=== PATIENT | male | born 1940 | race Caucasian/White ===

== ENCOUNTER 2016-10-11 13:25 | Inpatient (IN) | payer MEDICARE, OTHER ==
[~2016-10-11] VITALS: Ht 180.3 cm; Wt 93.1 kg
[2016-10-11] MEDS ORDERED: COZAAR 50MG50 MG/TAB PO (14:16)
[2016-10-11] MEDS ORDERED: OMEGA-3 FISH1000 MG PO (14:16)
[2016-10-11] MEDS ORDERED: PRILOSEC 20MG20 MG PO (14:16)
[2016-10-11] MEDS ORDERED: AZULFIDINE500 MG/TAB PO (14:16)
[2016-10-11] MEDS ORDERED: NORVASC 10MG10 MG PO (14:17)
[2016-10-11] MEDS ORDERED: ZOCOR 20MG20 MG PO (14:17)
[2016-10-11] MEDS ORDERED: NAPROSYN500 MG PO (14:17)
[2016-10-11] MEDS ORDERED: ZYLOPRIM 100MG100 MG PO (14:17)
[2016-10-11] MEDS ORDERED: PROVENTIL0.09 MG/A1 IH (14:18)
[2016-10-11 14:29] LABS: BASO # 0.1 (0.0-0.2); BASO % 0.6 % (0.0-2.0); EOS # 0.1 (0.0-0.7); EOS % 1.3 % (0-4.0); GRAN # 5.9 (1.4-6.5); GRAN % 76.1 % (42.2-75.2); HEMATOCRIT 37.2 % (42.0-52.0); HEMOGLOBIN 12.7 g/dl (13.5-18.0); LYMPH # 0.8 (1.2-3.4); LYMPH % 9.9 % (20.0-51.0); MEAN CELL VOLUME 94 fl (80.0-100.0); MEAN CORPUSCULAR HEMOGLOBIN 32 pg (27.0-31.0); MEAN CORPUSCULAR HGB CONC 34 g/dl (33.0-37.0); MEAN PLATELET VOLUME 10.8 fl (7.4-10.4); MONO # 0.9 (0.1-0.6); MONO % 11.3 % (1.7-9.3); PLATELET COUNT 229 K/mm3 (130-400); RED BLOOD COUNT 3.96 M/mm3 (4.20-5.60); REDCELL DISTRIBUTION WIDTH-CV 14.3 % (11.5-14.5); WHITE BLOOD COUNT 7.7 K/mm3 (4.8-10.8)
[2016-10-11 14:30] LABS: INR 1.5 (0.8-3.0); PROTHROMBIN TIME 17.2 SECONDS (9.7-12.8)
[2016-10-11 14:32] LABS: PARTIAL THROMBOPLASTIN TIME 38.2 SECONDS (26.0-37.0)
[2016-10-11 15:02] LABS: ADJUSTED CALCIUM 9.1 mg/dL (8.4-10.2); ALBUMIN 3.9 gm/dL (3.5-5.0); BILIRUBIN,TOTAL 9.6 mg/dL (0.0-1.0); C-REACTIVE PROTEIN 3.9 mg/dL (0.0-0.9); CREATININE, serum 1.26 mg/dL (0.66-1.25); POTASSIUM 4.2 mmol/L (3.4-5.0); TOTAL PROTEIN 8.2 gm/dL (6.4-8.2)
[2016-10-11 16:05] LABS: PH 6 (5-8); SQUAMOUS EPITHELIAL None Seen /hpf; URINE APPEARANCE Clear; URINE BACTERIA None Seen /hpf; URINE BILIRUBIN Positive (NEGATIVE); URINE BLOOD Negative (NEGATIVE); URINE COLOR Amber; URINE GLUCOSE Negative (NEGATIVE); URINE KETONE Trace (NEGATIVE); URINE RBC 0-2 /hpf; URINE UROBILINOGEN Negative (NEGATIVE); URINE WBC 0-2 /hpf
[2016-10-11 18:09] VITALS: BP 172/79; PULSE 76; TEMP 98.3
[2016-10-11 21:38] VITALS: BP 153/90; PULSE 72; TEMP 98.4
[2016-10-12] VITALS (11 sets, daily range): BP systolic 149–166; BP diastolic 66–84; PULSE 58–83; TEMP 97.8–98.5
[2016-10-12 07:27] LABS: BASO % 0.8 % (0.0-2.0); EOS # 0.2 (0.0-0.7); EOS % 2.9 % (0-4.0); GRAN # 3.7 (1.4-6.5); GRAN % 70.7 % (42.2-75.2); LYMPH # 0.7 (1.2-3.4); LYMPH % 12.6 % (20.0-51.0); MEAN CELL VOLUME 96 fl (80.0-100.0); MEAN CORPUSCULAR HGB CONC 33 g/dl (33.0-37.0); MEAN PLATELET VOLUME 11.1 fl (7.4-10.4); MONO # 0.6 (0.1-0.6); MONO % 12.4 % (1.7-9.3); PLATELET COUNT 189 K/mm3 (130-400); RED BLOOD COUNT 3.33 M/mm3 (4.20-5.60); REDCELL DISTRIBUTION WIDTH-CV 14.6 % (11.5-14.5); WHITE BLOOD COUNT 5.2 K/mm3 (4.8-10.8)
[2016-10-12 07:37] LABS: ALBUMIN 3.1 gm/dL (3.5-5.0); BILIRUBIN,TOTAL 7.1 mg/dL (0.0-1.0); CALCIUM 8.3 mg/dL (8.4-10.2); CREATININE, serum 1.04 mg/dL (0.66-1.25); POTASSIUM 3.8 mmol/L (3.4-5.0); TOTAL PROTEIN 6.6 gm/dL (6.4-8.2)
[2016-10-12 08:07] LABS: HEMATOCRIT 31.9 % (42.0-52.0); HEMOGLOBIN 10.5 g/dl (13.5-18.0); MEAN CORPUSCULAR HEMOGLOBIN 32 pg (27.0-31.0)
[2016-10-13 02:19] VITALS: BP 162/74; PULSE 76; TEMP 98.2
[2016-10-13 05:49] VITALS: BP 163/73; PULSE 66; TEMP 98.4
[2016-10-13 10:20] VITALS: BP 168/76; PULSE 82; TEMP 98.2
[2016-10-13 13:20] VITALS: BP 132/73; PULSE 76
== END 2016-10-13 15:36 | disposition home or self-care (01) | DRG 436 ==
LOC: COL.ER 13:25 → JCC 15:59
PROVIDERS: Emergency Medicine; Internal Medicine Gastroenterology; Physician Assistant
PROC: 0FB98ZX Excision of Common Bile Duct, Via Natural or Artificial Opening Endoscopic, Diagnostic (ICD-10-PCS; 2016-10-12)
PROC: 0F798DZ Dilation of Common Bile Duct with Intraluminal Device, Via Natural or Artificial Opening Endoscopic (ICD-10-PCS; principal; 2016-10-12 11:00)
DX: C24.0 Malignant neoplasm of extrahepatic bile duct (principal); E87.1 Hypo-osmolality and hyponatremia; K92.1 Melena; I10 Essential (primary) hypertension; J44.9 Chronic obstructive pulmonary disease, unspecified; Z85.46 Personal history of malignant neoplasm of prostate; Z87.891 Personal history of nicotine dependence; K62.7 Radiation proctitis
CPT/HCPCS: 99223-AI; 99233-AI; 99239; C1769; C2625; J2704; J7030; J7042; Q9967